=== PATIENT | male | born 1965 | race Two or more races ===

== ENCOUNTER 2017-12-23 22:27 | Emergency (ER) | payer OTHER ==
[~2017-12-23] VITALS: Ht 177.8 cm; Wt 87.1 kg
[~2017-12-23 22:27] MED LIST: ASPIR 8181 MG PO; ATENOLOL25 MG ORAL; ATORVASTATIN CA80 MG ORAL; CEPHALEXIN500 MG PO; FLOMAX0.4 MG ORAL; IBUPROFEN600 MG ORAL; NORCO 5-325 TA1 EACH ORAL; NORCO 5-325 TA1 EACH PO; RAMIPRIL5 MG PO
[2017-12-23 22:45] VITALS: BP 115/72
[2017-12-23] MEDS ORDERED: Dexamethasone 4mg/ml vial IM ONE (22:45)
[2017-12-23] MEDS ORDERED: GABAPENTIN300 MG ORAL (23:08)
[2017-12-23] MEDS ORDERED: MEDROL4 M1 PO (23:08)
--- NOTE | 2017-12-23 23:19 | Emergency Room Report ---
History of Present Illness General Chief Complaint: Pain Source: Patient Present Illness HPI 52yo M LLE pain that is similar to sciatica pain he's had in the past Radiating down LLE, starts in buttock denies n/t/weakness, f/c, b/b incontinence No relief with motrin Allergies: Coded Allergies: No Known Allergies (Unverified , 11/06/12) Patient History Past Medical History: see triage record Reviewed Nursing Documentation: PMH: Agreed; PSxH: Agreed Nursing Documentation-PMH Hx Cardiac Problems: Yes - M I TEN YEARS AGO CAD Review of Systems All Other Systems: negative except mentioned in HPI Physical Exam Vital Signs Date Time Temp Pulse Resp B/P (MAP) Pulse Ox O2 Delivery O2 Flow Rate FiO2 12/23/17 22:37 97.9 73 14 115/72 95 Room Air 97.9 Sp02 EP Interpretation: reviewed, normal General Appearance: no apparent distress, alert, non-toxic Head: normocephalic Eyes: bilateral eye normal inspection, bilateral eye PERRL, bilateral eye EOMI ENT: normal ENT inspection, hearing grossly normal, normal pharynx, no angioedema, normal voice, moist mucus membranes Neck: normal inspection, full range of motion, supple, supple/symm/no masses Respiratory: chest non-tender, lungs clear, normal breath sounds, chest symmetrical, palpation of chest normal Cardiovascular #1: normal peripheral pulses, regular rate, rhythm Cardiovascular #2: 2+ radial (R), 2+ radial (L) Gastrointestinal: normal inspection, non tender, soft, no mass, no guarding, no rebound Rectal: deferred Genitourinary: normal inspection, no CVA tenderness Musculoskeletal: back normal, gait/station normal, normal range of motion, non- tender, no calf tenderness Neurologic: alert, responsive, java j2ee lead III-XII nml as tested, motor strength/tone normal, SLR negative - + on LLE, sensory intact, speech normal Psychiatric: judgement/insight normal, memory normal, mood/affect normal Skin: normal color, no rash, warm/dry, normal turgor Lymphatic: no adenopathy Medical Decision Making Diagnostic Impression: Primary Impression: Sciatica ER Course pt with sciatica by h&p, will dc home with medrol, gabapentin Last Vital Signs Date Time Temp Pulse Resp B/P (MAP) Pulse Ox O2 Delivery O2 Flow Rate FiO2 12/23/17 22:53 97.9 12/23/17 22:37 73 14 115/72 95 Room Air Disposition: HOME, SELF-CARE Condition: Stable Scripts Methylprednisolone (MEDROL) 4 Mg Tab.ds.pk 4 MG PO DAILY for 6 Days, PACK Prov: JOSEPHINE MORENO M.D 12/23/17 Gabapentin* (GABAPENTIN*) 300 Mg Capsule 300 MG ORAL THREE TIMES A DAY for 7 Days, CAP 0 Refills Prov: JOSEPHINE MORENO M.D 12/23/17 Departure Forms: Return to Work Return to Work in (Days): 2 Patient Instructions: Sciatica, [id number] JOSEPHINE MORENO M.D December 23, 2017 23:19
[2017-12-23 23:26] VITALS: BP 0/0
== END 2017-12-23 23:26 | disposition home or self-care (01) ==
LOC: EMR 22:48
DX: M54.32 Sciatica, left side (principal); I25.10 Atherosclerotic heart disease of native coronary artery without angina pectoris; I25.2 Old myocardial infarction
CPT/HCPCS: 96372; 99284; J1100